=== PATIENT | female | born 1985 | race Caucasian/White ===

== ENCOUNTER → 2020-12-06 09:01 | Outpatient (CLI) | payer OTHER, SELFPAY ==
--- NOTE | 2020-12-06 09:07 | DI.MRI.S_ITS ---
PROCEDURE: MR HEAD/BRAIN WO CON INDICATIONS: Migraine without aura, not intractable, without st TECHNIQUE: Noncontrast axial T1 spin echo, axial T2 fast spin echo, sagittal and axial FLAIR, coronal T2 fast spin echo, axial gradient echo, axial diffusion and ADC through the brain. COMPARISON: None. FINDINGS: Image quality: Excellent. CSF Spaces: Basal cisterns are patent. No extra-axial fluid collections. Ventricles are normal in size and shape. Brain: No intracranial masses or hemorrhage. Fenton/white matter interface is normal. Brainstem appears normal. Diffusion-weighted images demonstrate no acute ischemic insult. No chronic ischemic insults. Normal intravascular flow voids are present. Skull and face: Calvarium has normal marrow signal. Orbits appear normal. Sinuses: Sinuses and mastoids are clear. IMPRESSION: Negative brain MRI. No explanation for migraine. No recent infarct. Dictated by: Isis Guzmán M.D. on 12/06/2020 at 9:36 Approved by: Isis Guzmán M.D. on 12/06/2020 at 9:37
== END ==
PROVIDERS: PCP Family Medicine; Referring Provider Family Medicine; Visit Provider Family Medicine
DX: G43.009 Migraine without aura, not intractable, without status migrainosus (principal); G44.84 Primary exertional headache; Z01.00 Encounter for examination of eyes and vision without abnormal findings
CPT/HCPCS: 70551